=== PATIENT | female | born 2000 | race Caucasian/White ===

== ENCOUNTER → 2020-03-03 | Outpatient (CLI) | payer OTHER ==
[~2020-03-03] MED LIST: ACET-789 PO; BUSP10TA95 PO; DEXT5TAB19 PO; L.AC1CAP6 PO; LEVO5TAB28 PO; MONT10TA26 PO; MULT-1136 PO; PANT20TA3 PO; SULF1TAB38 PO; [UNRECOGNIZED DRUG - CODE] PO
--- NOTE | 2020-03-06 05:42 | Diagnostic Imaging Report ---
PROCEDURE: US Gallbladder. TECHNIQUE: Multiple real-time grayscale images were obtained over the right upper quadrant in various projections. INDICATION: Right upper quadrant pain. FINDINGS: Liver is normal in size. There is hepatopedal flow in the main portal vein. There is no biliary duct dilatation. Common bile duct is 5 mm. There is no cholelithiasis, gallbladder wall thickening or pericholecystic fluid. Pancreas is not well-seen due to bowel gas. Aorta is nonaneurysmal. Right kidney is normal. There is no ascites. IMPRESSION: Unremarkable right upper quadrant ultrasound Dictated by: Dictated on workstation # [id number]
== END ==
LOC: RAD 15:49
PROVIDERS: ATTEND Nurse Practitioner Family
DX: R01.2 Other cardiac sounds (principal)
CPT/HCPCS: 76705

== ENCOUNTER → 2020-03-06 | Outpatient (CLI) | payer OTHER ==
[~2020-03-06] MED LIST changes: -BUSP10TA95 PO; +CATHETER FLUSH 10 ML SYR IV PRN; -DEXT5TAB19 PO; -L.AC1CAP6 PO; -LEVO5TAB28 PO; -MONT10TA26 PO; -MULT-1136 PO; -PANT20TA3 PO; -[UNRECOGNIZED DRUG - CODE] PO
--- NOTE | 2020-03-06 15:34 | Diagnostic Imaging Report ---
INDICATION: Right upper quadrant pain and nausea. EXAMINATION: Patient was administered 5.3 mCi technetium 99m Choletec intravenously and imaging over the abdomen was performed. FINDINGS: At one hour patient ingested 8 ounces of Ensure and the gallbladder ejection fraction was calculated. Patient denied any discomfort during the study. There is homogeneous uptake of activity by the liver with prompt excretion of activity into the gallbladder and common duct. There is normal passage of activity into the small bowel. Gallbladder ejection fraction is normal at 47%. IMPRESSION: Normal HIDA scan and gallbladder ejection fraction. Dictated by: Dictated on workstation # [id number]
== END ==
LOC: CARD 12:00
PROVIDERS: ATTEND Nurse Practitioner Family
DX: R10.11 Right upper quadrant pain (principal); R11.2 Nausea with vomiting, unspecified
CPT/HCPCS: 78227; A9537

== ENCOUNTER 2020-03-17 05:41 | Outpatient (RCR) | payer OTHER ==
[~2020-03-17] VITALS: Ht 152 cm; Wt 61.3 kg
[~2020-03-17 05:41] MED LIST changes: +BUSP10TA95 PO; -CATHETER FLUSH 10 ML SYR IV PRN; +DEXT5TAB19 PO; +L.AC1CAP6 PO; +LEVO5TAB28 PO; +MONT10TA26 PO; +MULT-1136 PO; +PANT20TA3 PO; +[UNRECOGNIZED DRUG - CODE] PO
== END 2020-03-17 10:33 | disposition home or self-care (01) ==
LOC: PREOP 05:41
PROVIDERS: ATTEND Surgery
DX: Z01.812 Encounter for preprocedural laboratory examination (principal); K82.8 Other specified diseases of gallbladder; K21.9 Gastro-esophageal reflux disease without esophagitis; Z20.828 Contact with and (suspected) exposure to other viral communicable diseases
CPT/HCPCS: 87635

== ENCOUNTER 2020-03-20 08:54 | Day surgery (SDC) | payer OTHER ==
--- NOTE | 2020-03-12 22:15 | HISTORY AND PHYSICAL ---
DATE OF SERVICE: ATTENDING SYSTEMS PROJECT MANAGER: Shania Shore DNP. HISTORY OF PRESENT ILLNESS: The patient is a 19-year-old female referred over to us for nausea after meals as well as reflux and regurgitation. She also does report bloating sensation after eating meals as well. She reports that this first started in 06/2019, however, has progressed. She states that after eating most meals, she feels bloating sensation and this was followed by nausea and does have occasional episodes of emesis. She also reports that she does have significant reflux and regurgitation usually in the morning and then also has a burning sensation in the epigastric region. She was started on Protonix 20 mg daily and states that this may have helped a little bit; however, has become less effective over time. PAST MEDICAL HISTORY: Ovarian cysts. PAST SURGICAL HISTORY: Breast augmentation, 07/2019. ALLERGIES: No known drug allergies. MEDICATIONS: Protonix 20 mg daily, norethindrone daily, montelukast daily, buspirone 10 mg daily, Adderall 10 mg daily. SOCIAL HISTORY: Negative smoke, negative alcohol. FAMILY HISTORY: Paternal grandmother had breast cancer. Mother, hypertension. Father, history of DVT. VITAL SIGNS: Blood pressure 135/73, current weight 138.0 pounds at 5 feet 0 inches. REVIEW OF SYSTEMS: Well-nourished female, in no acute distress. She is not experiencing any shortness of breath or difficulty breathing. No chest pain, palpitations, diaphoresis. Intermittent episodes of nausea as well as emesis as well as epigastric burning sensation and regurgitation. No hematemesis, no coffee ground emesis. Intermittent episodes of diarrhea, no red blood per rectum, no dark tarry stools. No fever or chills. No recent inadvertent weight loss. All other review of systems negative. PHYSICAL EXAMINATION: CHEST: Clear. Good breath sounds bilaterally. HEART: Regular, no murmurs. EXTREMITIES: No lower extremity edema, negative Homans sign. HEENT: No scleral icterus. NECK: No cervical lymphadenopathy. ABDOMEN: Soft, nondistended. There is pain in the epigastric region as well as a right upper abdominal quadrant upon deep palpation. No peritoneal signs. SKIN: Warm, dry. ASSESSMENT AND PLAN: A 19-year-old female with symptomatic biliary dyskinesia. She does have the clinical symptoms; however, she also underwent a HIDA scan, which did show a normal ejection fraction of 46%. However, after the administration of Kinevac analog, she did have reproduction of symptoms. She also does have significant reflux as well as regurgitation and we will proceed with scheduling her for a laparoscopic cholecystectomy as well as an EGD under the same anesthesia. Job ID: [id number] DocumentID: [id number] Dictated Date: 03/11/2020 16:44:02 Information Systems Project Manager Date: 03/11/2020 16:58:03 Dictated By: DANO HUGHES MD
[2020-03-20] VITALS (11 sets, daily range): BP systolic 121–149; BP diastolic 82–98
[~2020-03-20] VITALS: Ht 152 cm; Wt 61.3 kg
[2020-03-20] MEDS ORDERED: ceFAZolin INJECTION 1,000 MG in WATER (STERILE) FOR INJECTION 10 ML IV ONE (09:15)
[2020-03-20] MEDS ORDERED: fentaNYL INJECTION 100 MCG/2 ML AMP ONE (09:30)
[2020-03-20] MEDS: LACTATED RINGERS 1,000 ML IV PRN ×2 (09:30→10:50)
[2020-03-20] MEDS ORDERED: MIDAZOLAM 2 MG/2 ML (VERSED) VIAL ONE (09:30)
--- OUTSIDE RECORDS SUMMARY | 2020-03-20 09:35 | XMS REPORT | Continuity of Care Document ---
Author Organization Unknown Address Unknown Phone Unavailable Allergies Active Description Code Type Severity Reaction Onset Reported/Identified Relationship to Patient Clinical Status Yes No Allergy Information Available [id number] Drug Allergy Unknown N/A 012 Yes No Known Drug Allergies [id number] Drug Allergy Unknown N/A 03/13/2020 Medications There is no data. Problems Date Dx Coded Attending Type Code Diagnosis Diagnosed By 05/05/2012 Ot 789.03 ABD OMINAL PAIN, RIGHT LOWER QUADRANT 05/25/2015 JEREMY THOMAS, VASHTI Jernigan Ot 789.00 ABDOMINAL PAIN, UNSPECIFIED SITE 05/29/2015 SIAM, HANNY K SECURITY ROVER Ot 788.1 05/29/2015 SIAM, HANNY K SECURITY ROVER Ot 788.41 05/29/2015 SIAM, HANNY K SECURITY ROVER Ot 789.00 01/14/2016 SIAM, HANNY K SECURITY ROVER Ot 788.1 DYSURIA 01/14/2016 SIAM, HANNY K SECURITY ROVER Ot 788.41 URINARY FREQUENCY 01/14/2016 SIAM, HANNY K SECURITY ROVER Ot 789.00 ABDOMINAL PAIN, UNSPECIFIED SITE 01/16/2016 BRODY, VIVIANA L SECURITY ROVER Ot 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, UNSPECIFIED 01/16/2016 BRODY, VIVIANA L SECURITY ROVER Ot R07.81 PLEURODYNIA 03/03/2020 SIAM, HANNY K SECURITY ROVER Ot 789.00 ABDOMINAL PAIN, UNSPECIFIED SITE 03/03/2020 BRODY VIVIANA L SECURITY ROVER Ot 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 Results Test Result Range Coronavirus SARS-CoV-2 SO 2018 - 0 08:16 Coronavirus Ab [Units/volume] in Serum Negative Negative Encounters ACCT No. Visit Date/Time Discharge Status Pt. Type Provider Facility Loc./Unit Complaint [id number] 03/17/2020 05:41:00 020 10:33:00 DIS Outpatient SAUL THOMAS, DANO [facility] PREOP BILIARY DYSKINESIA, REF LUX [id number] 03/06/2020 12:00:00 23:59:59 CLS Outpatient BRODYVIVIANA HARRIS [facility] CARD RUQ PAIN,NAUSEA [id number] 03/03/2020 15:49:00 020 23:59:59 CLS Outpatient VIVIANA BRODY [facility] RAD RUQ PAIN [id number] 01/14/2016 10:15:00 016 23:59:59 CLS Outpatient BRODYVIVIANA HARRIS [facility] RAD RIB PAIN [id number] 05/27/2015 15:20:00 015 23:59:59 CLS Outpatient SIAKALA UptonA K [facility] LAB ABDOMINAL PAIN [id number] 05/25/2015 00:01:00 015 03:09:00 DIS Emergency JEREMY THOMAS, VASHTI Jernigan [facility] ER ABD PAIN [id number] 11/07/2013 11:43:00 014 23:59:59 CLS Outpatient SIAM HANNY K [employer]ITY [facility]OVER [facility] LAB [id number] 06/06/2013 18:42:00 013 23:59:59 CLS Outpatient [id number] 03/20/2020 09:15:00 [facility] REFLUX [id number] 05/05/2012 09:15:00 Document Registration
--- OUTSIDE RECORDS SUMMARY | 2020-03-20 09:35 | XMS REPORT ---
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 Encounters Encounter Date Encounter Type Encounter Diagnosis Care Provider Facility Start: Discharged Recurring DO ELLY BRODY [facility] 03-17-2020 Work Phone: [place] [phone] End: 03-17-2020 Start: Patient encounter DANO HUGHES MD [facility] 03-17-2020 procedure [facility] End: 03-17-2020 Start: Patient encounter DANO HUGHES MD [facility] 03-13-2020 procedure [facility] Start: Patient encounter VIVIANA BRODY [facility] 03-06-2020 procedure [facility] Start: Patient encounter DO ELLY BRODY [facility] 03-03-2020 procedure Work Phone: [place] [phone] Start: Evaluation and IVANA SOLER MD [facility] 05-05-2012 management of [facility] inpatient End: 05-05-2012 Encounter for DANO HUGHES MD [id number] Medical Equipment The data below is from unstructured sourcesNo Medical Equipment Information available Goals Date Patient Goal Desired Activity/St ate Immunizations The data below is from unstructured sources Immunization Event Date Not Given Reason Dose Number Material Hauler Lot Number Vaccine Information Statement (VIS) Deta il Interventions No Information Medications Current Medications Medication Drug Dates Sig Sig (Original) Class(es) (Normalized) amphetamine aspartate Central Dextroamphetamin e/Amphetamine Active 5 1.25 mg / amphetamine Nervous ORAL Daily as ne eded for Restlessness sulfate 1.25 mg / System dextroamphetamine Stimulant saccharate 1.25 mg / dextroamphetamine sulfate 1.25 mg oral tablet (1 source) busPIRone hydrochloride Buspirone Hcl Active 10 O RAL Daily 10 mg oral tablet (1 source) Noreth-Ethinyl Estrogen Noreth-Ethinyl Estr adiol/Iron Active 1 Estradiol/Iron ORAL Daily (1 source) L.acidoph & L.acidoph & Paracasei,B.lac tis Active 1 Paracasei,B.lactis ORAL Daily (1 source) levocetirizine Histamine- Levocetirizine Dihy drochloride Active 5 (1 source) 1 Receptor ORAL Daily Antagonist montelukast 10 mg oral Leukotrien Montelukast Sod ium Active 10 ORAL Daily tablet e Receptor (1 source) Antagonist Multivitamin preparation Multivitamin Active 1 OR AL Daily (1 source) pantoprazole 20 mg Proton Pantoprazole Sodium Active 20 ORAL delayed release oral Pump Bedtime tablet Inhibitor (1 source) Completed/Discontinued Medications Medication Drug Dates Sig Sig (Original) Class(es) (Normalized) Acetaminophen With End: Acetaminophen With Codeine Discontinued Codeine 03-13-2020 1 ORAL Every 4HRS a s needed March 13, (1 source) 2019 FOR PAIN Trimethoprim/Sulfamethox End: Trimethoprim /Sulfamethoxazole azole 03-13-2020 Discontinued 1 ORAL Twice A Day 18 March (1 source) 2019 X 7DAYS Payers Date Payer Normalized Payer [id number] Plan of Treatment Date Care Activity Detail Author Coronavirus Ab [facility] [Units/volume] in [facility] ([id number]) Problems Problem Problem Date Last Documented Episodic/Chr Provider Classificati Recorded Date onic on Biliary Other specified diseases of 03-19-2020 Episodic DANO KIDO tract gallbladder ; Translations: MD disease [Biliary dyskinesia] (2 sources) Esophageal Gastro-esophageal reflux disease 03-19-2020 Chroni c TAKAAKI KIDO disorders without esophagitis MD (1 source) Immunization Contact with and (suspected) 03-19-2020 Episodic TAKAAKI KIDO s and exposure to other viral MD screening communicable diseases for infectious disease (1 source) Nausea and Nausea with vomiting, unspecified 03-10-2020 Episo dic VIVIANA vomiting MARY GRACE DNP (1 source) Unclassified Finding of sensation of abdomen DO SANABRIA (1 source) MARY GRACE Work Phone: Procedures Date Procedure Procedure Detail Performing Cl inician Start: Radionuclide DO ELLY BRODY 03-06-2020 imaging of liver Work Phone: and/or biliary tract using radioactive isotope Start: US scan of DO ELLY BRODY 03-03-2020 gallbladder Work Phone: Results Test Name Value Interpreta Reference Facilit Date tion Range y Time laboratory on 2020-03-17 Coronavirus Ab Qn Negative Invalid Negative PENDING 03-17 (S) Interpreta LOCATIO 020 tion Code N [facility] 04:16-0 ([id number]) 400 Social History Date Type Detail Facility Start: Tobacco smoking status NHIS Never smoked tobac co [facility] 03-13-2020 (finding) [facility] ([id number]) Start: Never a Smoker [facility] 03-13-2020 [facility] ([id number]) Start: Denies Use [facility] 05-25-2015 [facility] ([id number]) Start: No [facility] 05-25-2015 [facility] ([id number]) Start: Sex Assigned At Female [facility] [address] [facility] ([id number]) Vital Signs The data below is from unstructured sources Vital Response Date/Time Temperature (Fahrenheit) 99.1 degree s F (97.6 - 99.5) 05/25/2015 1:21am Temperature Source Temporal 05/25/2015 1:21am Pulse Rate (Adolescent 12-19yrs) 62 bpm (56 - 106) 05/25/2015 1:21am Respiratory Rate (Adolescent 12-19yrs) 16 bpm (15 - 20) 05/25/2015 1:21am Blood Pressure / Blood Pressure Systolic (Adolescent 12-19yrs) 100 mm Hg (115 - 120) 05/25/2015 1:21am Pain Pain Intensity 3 2014 3:06am Height (Feet) 5 feet 1:21am Height (Inches) 1 inches 05/25/2015 1:21am Height (Calculated Centimeters) 154. 985229 cm 05/25/2015 1:21am Weight (Pounds) 125 pounds 05/25/2015 1:21am Weight (Calculated Kilograms) 56.699 047 kilograms 05/25/2015 1:21am Calculated BMI 23.62 1:21am No vital signs result information available. Functional Status The data below is from unstructured sourcesNo functional status results.No Functional Status information availableNo Functional Status information available Mental Status The data below is from unstructured sourcesNo Mental Status Information Available Evaluation note Note Date & Note Facility Type Evaluation No Assessments Information Available [facility] scension Via note [facility] ([id number]) Advance Directives Directive Response Recor ded Date/Time Advance Directives No 1:21am Health Care Power of Structural Engineering Technician No 05/25/15 1:21am Organ Donor No 05/25/15 1:21am Resuscitation Status Full Code 05/25/15 1:21am Advance Directive Response Recorded Date/Time Advance Directives No 2019 12:47pm Health Care Power of Structural Engineering Technician No March 13, 2020 12:47pm Organ Donor No March 13, 2020 12:47pm Resuscitation Status Full Code March 13, 2020 12:47pm Discharge Instructions No hospital discharge instructions. Additional Source Comments This clinical document has been generated using [employer] software that has been certified by the Office of the National Coordinator for Health Information Technology (ONC 15.99.04.3023.Diam.31.00.0.622509) and the National Committee for Air Carrier Maintenance Inspector (NCQA, as an eMeasure certified technology). FOR RECORDS PERTAINING TO PATIENTS WHO ARE OR HAVE BEEN ENROLLED IN A CHEMICAL D EPENDENCY/SUBSTANCE ABUSE PROGRAM, SOME INFORMATION MAY BE OMITTED. This clinica l summary was aggregated from multiple sources. Caution should be exercised in using it in the provision of clinical care. This summary normalizes information from multiple sources, and as a consequence, information in this document may ma terially change the coding, format and clinical context of patient data. In twan tion, data may be omitted in some cases. CLINICAL DECISIONS SHOULD BE BASED ON T HE PRIMARY CLINICAL RECORDS. [facility] [employer], [facility]. provides no warranty or guara ntee of the accuracy or completeness of information in this document.The followi ng information is based on time limited clinical information
[2020-03-20] MEDS ORDERED: ONDANSETRON 4 MG/2 ML (SDV) Z0FRAN ONE ×2 (09:37→09:49)
[2020-03-20] MEDS ORDERED: FAMOTIDINE 20MG/2ML IV (PEPCID) ONE (09:38)
[2020-03-20 09:41] LABS: BASOPHILS % (AUTO) 0 % (0-10); EOSINOPHILS # (AUTO) 0.1 10^3/uL (0.0-0.3); EOSINOPHILS % (AUTO) 1 % (0-10); HEMATOCRIT 45 % (35-52); HEMOGLOBIN 15.2 G/DL (11.5-16.0); LYMPHOCYTES # (AUTO) 2.5 X 10^3 (1.0-4.0); LYMPHOCYTES % (AUTO) 36 % (12-44); MEAN CORPUSCULAR HEMOGLOBIN 31 PG (25-34); MEAN CORPUSCULAR HGB CONC 34 G/DL (32-36); MEAN CORPUSCULAR VOLUME 90 FL (80-99); MEAN PLATELET VOLUME 9.9 FL (7.4-10.4); MONOCYTES # (AUTO) 0.4 X 10^3 (0.0-1.0); MONOCYTES % (AUTO) 6 % (0-12); NEUTROPHILS % (AUTO) 57 % (42-75); PLATELET COUNT 359 10^3/uL (130-400); RED CELL DISTRIBUTION WIDTH 12.8 % (10.0-14.5)
[2020-03-20] MEDS ORDERED: ONDANSETRON 4 MG/2 ML (SDV) Z0FRAN IV ONE (09:45)
[2020-03-20] MEDS ORDERED: FAMOTIDINE 20MG/2ML IV (PEPCID) IV ONE (09:45)
[2020-03-20] MEDS ORDERED: proPOfol 200 MG/20 ML (DIPRIVAN) VIAL IV ONE (09:48)
[2020-03-20] MEDS ORDERED: SEVOFLURANE (ULTANE) 15 ML INHAL SOLN ONE ×4 (09:48→11:24)
[2020-03-20] MEDS ORDERED: LIDOCAINE PF 2% 5 ML (XYLOCAINE) VIAL ONE (09:48)
[2020-03-20] MEDS ORDERED: ROCURONIUM 10 MG/ML 5 ML SYRINGE IV ONE (09:48)
[2020-03-20] MEDS ORDERED: BUP/EPI 0.5% 1:200,000 (SENSORCAINE) 30 ML VIAL ONE (09:48)
[2020-03-20] MEDS ORDERED: NEOSTIGMINE 3 MG/3 ML VIAL ONE (09:49)
[2020-03-20] MEDS ORDERED: DEXAMETHASONE 10 MG/ML (DECADRON) 1 ML VIAL ONE (09:49)
[2020-03-20] MEDS ORDERED: GLYCOPYRROLATE 0.2 MG/ML (ROBINUL) 2 ML VIAL ONE (09:49)
--- NOTE | 2020-03-20 09:50 | Progress Note-Pre Operative ---
Pre-Operative Progress Note H&P Reviewed The H&P was reviewed, patient examined and no changes noted. Date Seen by Provider: Mar 20, 2020 Time Seen by Provider: 09:50 Date H&P Reviewed: Mar 20, 2020 Time H&P Reviewed: 09:45 Pre-Operative Diagnosis: Symptomatic biliary dyskinesia and Reflux ARMIDA DRAKE APRN Mar 20, 2020 09:50
--- NOTE | 2020-03-20 09:52 | Discharge Inst-Surgical ---
D/C Lap Instructions-KIDO Reconcile Patient Problems Problems Reviewed?: Yes New, Converted, or Re-Newed RX: RX on Chart Follow Up Appt in 2 weeks Activity as tolerated No driving for 24 hours No driving while on pain medications Incentive Spirometry use every 2 hours while awake Regular Diet Symptoms to Report: Fever over 101 degree F, Nausea/Vomiting Infection Signs and Symptoms to report: Increased redness, Foul odor of wound, Increased drainage Bathing instructions: May shower Operative Area Clean/Dry; Keep incision clean/dry If any problems/questions: Contact your physician or go to Emergency Room ARMIDA DRAKE APRN Mar 20, 2020 09:52
[2020-03-20] MEDS ORDERED: ACETAMINOPHEN 325 MG TABLET PO PRN (10:00)
[2020-03-20] MEDS ORDERED: morphine INJ 10 MG/ML 1ML (SYR OR VIAL) IVP PRN (10:00)
[2020-03-20] MEDS ORDERED: HYDROcodone/APAP 5 MG/325 MG (LORTAB) TAB PO ONE (10:00)
[2020-03-20] MEDS ORDERED: ONDANSETRON 4 MG/2 ML (SDV) Z0FRAN IVP PRN ×2 (10:00→11:30)
[2020-03-20] MEDS ORDERED: HYDROmorphone 2 MG/ML VIAL (DILAUDID) ONE (10:30)
--- NOTE | 2020-03-20 11:21 | Progress Note-Post Operative ---
Post-Operative Progess Note Surgeon (s)/Custody Officer (s) Surgeon Dr. Dylan Yanez M.D. Custody Officer: James Drake MEDICATION CARE MANAGER Pre-Operative Diagnosis Symptomatic biliary dyskinesia and Reflux Post-Operative Diagnosis Biliary dyskinesia, esophagitis stage II, mild distal esophageal stricture, small Hiatal hernia (2 cm) in size, mild gastritis Procedure & Operative Findings Date of Procedure 03/20/20 Procedure Performed/Findings Laparoscopic cholecystectomy, EGD with biopsy and balloon dilatation Anesthesia Type GET Estimated Blood Loss Estimated blood loss (mL): Minimal Specimens/Packing Specimens Removed 1) Gallbladder 2) Antrum 3) GE junction JAMES DRAKE MEDICATION CARE MANAGER Mar 20, 2020 11:21
[2020-03-20] MEDS ORDERED: HYDROmorphone 2 MG/ML VIAL (DILAUDID) IV ONE (11:30)
[2020-03-20] MEDS ORDERED: HYDROcodone/APAP 5 MG/325 MG (LORTAB) TAB ONE (12:22)
--- NOTE | 2020-03-20 12:51 | Anesthesia-General Post-Op ---
General Patient Condition Mental Status/LOC: Same as Preop Cardiovascular: Satisfactory Nausea/Vomiting: Absent Respiratory: Satisfactory Pain: Controlled Complications: Absent Post Op Complications Complications None Follow Up Care/Instructions Patient Instructions None needed. Anesthesia/Patient Condition Patient Condition Patient is doing well, no complaints, stable vital signs, no apparent adverse anesthesia problems. No complications reported per nursing. AVILA STAFFORD CRNA Mar 20, 2020 12:51
[2020-03-20] MEDS ORDERED: HYDR-83 PO (12:58)
[2020-03-20] MEDS ORDERED: PANT40TA2 PO (12:58)
[2020-03-20] MEDS ORDERED: VASOPRESSIN INJECTION 20 UNIT/ML VIAL ONE (13:11)
--- NOTE | 2020-03-20 13:35 | OPERATIVE REPORT ---
DATE OF SERVICE: 03/20/2020 ATTENDING PRIMARY CARE PHYSICIAN: Shania Shore DNP. PREOPERATIVE DIAGNOSES: Symptomatic biliary dyskinesia, gastroesophageal reflux disease. POSTOPERATIVE DIAGNOSES: Biliary dyskinesia, reflux esophagitis stage II, mild distal esophageal stricture, small hiatal hernia approximately 2 cm in size, moderate gastritis. PROCEDURE: EGD with biopsy and balloon dilatation. Laparoscopic cholecystectomy. SURGEON: Dano Hughes MD SANITATION DIRECTOR: James Green APRN. ANESTHESIA: General endotracheal. ESTIMATED BLOOD LOSS: Minimal. FINDINGS: Biliary dyskinesia, reflux esophagitis stage II, mild distal esophageal stricture, small hiatal hernia approximately 2 cm in size, moderate gastritis. DISPOSITION: The patient tolerated the procedure well. INDICATIONS: The patient is a 19-year-old female who has had a six-month history of intermittent episodes of nausea. She states that this is usually followed after eating a meal, but however, she cannot discern any causative types of food. She underwent an ultrasound, which did not show any gallstones; however, she underwent a HIDA scan, which showed a normal ejection fraction; however, she did have reproduction of symptoms with nausea and abdominal pain that day. She also reports that she has had issues with reflux with epigastric burning sensation as well as crampy pain and has had episodes of regurgitation in the past as well. DESCRIPTION OF PROCEDURE: The patient was brought to the operating room, laid supine on the table. After adequate IV pain and sedated medications and general endotracheal intubation, the abdomen was prepped and draped in standard surgical fashion. A 0.5% Marcaine with epinephrine was then used to anesthetize the overlying skin in the left upper abdominal quadrant and transverse skin incision made using a 15 blade. An 0 silk suture was applied to the medial aspect of the incision for retraction and a Veress needle inserted with a low opening pressure of 0 mmHg. The abdomen was then insufflated to 15 mmHg pressure. The Veress needle removed and a 5 mm XL trocar placed followed by a 5 mm 45-degree angle laparoscope visualizing the peritoneal cavity. A 4-quadrant abdominal exploration was performed. There was a slightly distended gallbladder, no gallbladder wall thickening. What was visualized the liver, stomach, small bowel appeared normal. Under direct visualization, we then proceeded to place an infraumbilical 10 mm port after the skin and peritoneal lining were anesthetized using 0.5% Marcaine with epinephrine and a transverse skin incision made using 15-blade. In a similar manner, a right upper abdominal quadrant 5 mm port was placed. The patient was then placed in reverse Trendelenburg position as well as plane right side up, left side down. The fundus of the gallbladder was then retracted anteriorly and superiorly. The hepatoduodenal ligament was then opened using blunt dissection as well as electrocautery on the hook instrument. The entire critical view of safety was identified including the triangle of Calot as well as the cystic duct and artery as only two structures going into the gallbladder as well as the cystic plate behind the proximal gallbladder. A timeout was then taken and the cystic duct and artery were then clipped proximally, distally and cut with EndoShears. The gallbladder was dissected off the liver bed using cautery on the hook instrument with visualization of good hemostasis as well as no leaking ducts of Luschka. The gallbladder was removed through the 10 mm port site using an EndoCatch bag. The 10 mm port site fascia and peritoneum were then closed under direct visualization using a Az-Anjum device and 0 Vicryl suture. The abdomen was desufflated and remaining ports removed. All skin incisions were closed using 4-0 Monocryl running subcuticular sutures. Wounds were then cleaned and covered with Dermabond. Under the same anesthesia, we then proceeded with the EGD portion of the procedure. The endoscope was placed in the mouth, visualizing the pharynx and hypopharyngeal region. Vocal cords, epiglottis and vallecula identified and appeared to be normal. The endoscope was then gently intubated at esophageal opening and esophagus insufflated. The endoscope was then advanced to the first, second, third portion of the esophagus at the level of the GE junction, a reflux esophagitis stage II identified. There was a mild distal esophageal stricture and Schatzki's ring also identified. A biopsy was taken of this region with forceps with visualization of good hemostasis. The endoscope was then advanced in the stomach and endoscope retroflexed, visualizing the small hiatal hernia approximately 2 cm in size. There was a moderate severity gastritis more towards the stomach antrum. No formal ulcerations, polyps, or any neoplasms. A biopsy was taken with forceps with visualization of good hemostasis. The endoscope was then advanced to the pylorus and the first and second portion of the duodenum, which appeared normal with no distal obstructions. A biopsy was taken of the antrum to rule out H. pylori with visualization of good hemostasis. We then proceeded with dilatation of the mild distal esophageal stricture. The balloon was placed in the stomach and pulled back to the area of the gastroesophageal junction and then 4 atmospheres of pressure with mild resistance. We then proceeded to 6 atmospheres of pressure with again only mild resistance. This was left in place for approximately 60 seconds. The balloon was then desufflated and removed with visualization of good hemostasis as well as no mucosal tears. The endoscope was then slowly withdrawn while taking a second look and suctioning of residual air with no additional findings. The patient tolerated the procedure well. We will start IV normal pain medication as well as a clear liquid diet. When she is tolerating clears, has good pain control with oral pain medications, ambulating well, we will discharge her home. She will be instructed to do no heavy lifting or exertion for the next two weeks. For her reflux esophagitis, mild stricture as well as hiatal hernia, we will recommend the necessary lifestyle and diet accommodation including small and more frequent meals, avoidance of eating at night as well as head elevation while lying supine. She also needs to avoid caffeinated beverages, spicy, greasy and acidic foods. 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 Job ID: [id number] DocumentID: [id number] Dictated Date: 03/20/2020 11:34:17 Wafer Fab Operator Date: 03/20/2020 13:35:00 Dictated By: DANO HUGHES MD
== END 2020-03-20 13:25 | disposition home or self-care (01) ==
LOC: SDC 08:54
PROVIDERS: ATTEND Surgery
DX: K21.0 Gastro-esophageal reflux disease with esophagitis (principal); K29.50 Unspecified chronic gastritis without bleeding; K22.2 Esophageal obstruction; K44.9 Diaphragmatic hernia without obstruction or gangrene; K81.1 Chronic cholecystitis; K82.8 Other specified diseases of gallbladder; F41.9 Anxiety disorder, unspecified; F32.9 Major depressive disorder, single episode, unspecified; Z79.899 Other long term (current) drug therapy; Z83.3 Family history of diabetes mellitus; Z82.49 Family history of ischemic heart disease and other diseases of the circulatory system
CPT/HCPCS: 36415; 84703; 85025; 87081; 88304; 88305; 94664

== ENCOUNTER 2021-03-13 11:20 | Outpatient (CLI) | payer OTHER ==
[~2021-03-13] VITALS: Ht 162.5 cm; Wt 54.5 kg
[2021-03-13 11:20] VITALS: BP 123/96
[~2021-03-13 11:20] MED LIST changes: +ACHD5005 PO; -MONT10TA26 PO; +MONT10TA32 PO; +PANT20TA18 PO; -PANT20TA3 PO; +PANT40TA2 PO
[2021-03-13 11:46] LABS: BASOPHILS % (AUTO) 0 % (0-10); EOSINOPHILS % (AUTO) 1 % (0-10); HEMATOCRIT 47 % (35-52); HEMOGLOBIN 15.8 g/dL (11.5-16.0); LYMPHOCYTES # (AUTO) 1.4 10^3/uL (1.0-4.0); LYMPHOCYTES % (AUTO) 35 % (12-44); MEAN CORPUSCULAR HEMOGLOBIN 31 pg (25-34); MEAN CORPUSCULAR HGB CONC 34 g/dL (32-36); MEAN CORPUSCULAR VOLUME 91 fL (80-99); MEAN PLATELET VOLUME 9.2 fL (9.0-12.2); MONOCYTES # (AUTO) 0.6 10^3/uL (0.0-1.0); MONOCYTES % (AUTO) 14 % (0-12); NEUTROPHILS % (AUTO) 50 % (42-75); PLATELET COUNT 295 10^3/uL (130-400)
[2021-03-13] MEDS ORDERED: LACTATED RINGERS 1,000 ML IV SCH (12:00)
[2021-03-13] MEDS ORDERED: CATHETER FLUSH 10 ML SYR IV PRN (12:00)
[2021-03-13 12:07] LABS: ERYTHROCYTE SEDIMENTATION RATE 7 MM/HR (0-20)
[2021-03-13 12:19] LABS: ALANINE AMINOTRANSFERASE 27 U/L (0-55); ALBUMIN 4.4 GM/DL (3.2-4.5); ALKALINE PHOSPHATASE 59 U/L (40-136); BILIRUBIN,TOTAL 0.3 MG/DL (0.1-1.0); BUN/CREATININE RATIO 10; CALCIUM 9.8 MG/DL (8.5-10.1); CARBON DIOXIDE 23 MMOL/L (21-32); CHLORIDE 102 MMOL/L (98-107); CREATININE SERUM 0.83 MG/DL (0.60-1.30); GFR ESTIMATED > 60; GLUCOSE 90 MG/DL (70-105); POTASSIUM 3.7 MMOL/L (3.6-5.0); SODIUM 137 MMOL/L (135-145); TOTAL PROTEIN 8.1 GM/DL (6.4-8.2)
[2021-03-13] MEDS ORDERED: LACTATED RINGERS 1,000 ML IV ONE (13:15)
== END 2021-03-13 12:40 | disposition home or self-care (01) ==
LOC: SDC 11:20
PROVIDERS: ATTEND Nurse Practitioner Family
DX: U07.1 COVID-19 (principal); E86.0 Dehydration
CPT/HCPCS: 36415; 80053; 85025; 85652; 96360

== ENCOUNTER → 2022-03-16 | Outpatient (CLI) | payer OTHER ==
[~2022-03-16] MED LIST changes: +MONT-40 PO; -MONT10TA32 PO
--- NOTE | 2022-03-16 12:37 | Diagnostic Imaging Report ---
PROCEDURE: Pelvic comp/transvaginal sonogram. TECHNIQUE: Complete transabdominal and transvaginal pelvic ultrasound was performed. In addition, limited pelvic Doppler was performed. INDICATION: Abdominal pain, left lower quadrant pain. FINDINGS: The uterus is anteverted measuring 5.6 x 2.6 x 3.6 cm. The endometrium is 3 mm in thickness. No myometrial mass is detected. The right ovary measures 2.8 x 1.7 x 1.8 cm and the left ovary measures 2.8 x 1.2 x 1.7 cm. The ovaries contain follicles. There is blood flow to both ovaries. A small amount of free fluid is present. IMPRESSION: Unremarkable transabdominal and transvaginal pelvic ultrasound. Dictated by: Dictated on workstation # [id number]
== END ==
LOC: RAD 10:56
PROVIDERS: ATTEND Nurse Practitioner Family
DX: R10.32 Left lower quadrant pain (principal)
CPT/HCPCS: 76830; 76856